=== PATIENT | male | born 1955 | race Caucasian/White ===

== ENCOUNTER → 2017-11-05 | Outpatient (CLI) | payer BC ==
[~2017-11-05] MED LIST: FLOMAX PO; MOBIC15 MG PO; PERCOCET 5-3251 EACH PO; ZOFRAN 4 MG ORAL4 M1 DIS
== END ==
LOC: M.RAD 10:46
DX: M47.892 Other spondylosis, cervical region (principal); M43.12 Spondylolisthesis, cervical region

== ENCOUNTER → 2017-11-26 | Outpatient (CLI) | payer BC ==
--- NOTE | 2017-12-01 07:00 | PAINCON ---
[address] [address] PAIN MANAGEMENT CONSULTATION Name: RUPESH PALMER Room: [facility].#: [id number] Admission: 11/26/17 Attend Phys: Janiya Armenta Discharge: Date of : 53 Report #: [id number] THIS REPORT FOR: //name// CC: Esau Leon HISTORY OF PRESENT ILLNESS: The patient is a 62-year-old gentleman seen in consultation at the request of Dr. Curry for paresthesia, right neck, posterior occiput, ear and shoulder. The patient notes symptoms have been present for 6 weeks without antecedent trauma and overuse, describes periodic symptoms, describes it as numbness and tingling, no subjective pain, but concern for paresthesia on the right side of the neck, had prompted diagnostic study including x-ray of the cervical spine. REVIEW OF SYSTEMS: A complete review of systems was attached to chart and was gone over with the patient. He is , does not smoke or drink alcohol to excess. A 12-point review of systems is fairly unremarkable. 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 He continued to work despite pain. Pain impact score is quite low, averaging 4/70. PHYSICAL EXAMINATION: Reveals a 5 feet 9 inches, 215-pound gentleman, BMI is 32 kg/m2. Blood pressure 132/69, pulse 64, respirations are 16. Cranial nerves 2-12 are grossly intact. Pupils are equal and react to light and accommodation. Extraocular muscles are intact. Cervical range of motion exacerbates some symptoms. Thyroid is modestly enlarged. No carotid bruits are auscultated. Upper extremity strength is generally preserved. He does have some subjective paresthesia, posterior right pinna, posterior occiput, neck and over the cape of the right shoulder. Deltoid strength is symmetric. Biceps and triceps strength is symmetric. Hand grasp is good. Upper extremity reflexes are symmetric. Heart is regular and rhythmical without murmurs. Lungs are clear to auscultation. Abdomen is benign. Gait is tandem. Lower extremity strength is preserved. DIAGNOSTIC STUDIES: Include x-ray of the cervical spine on 11/05/2017, noting cervical spondylosis C3-C4, 4-5, and 5-6, slight retrolisthesis at C3-C4. ASSESSMENT: Symptomatic cervical spondylosis by clinical exam and history, possible component of cervical radiculopathy. RECOMMENDATIONS: We will start the patient on a good nonsteroid anti-inflammatory, Meloxicam 15 mg 1 a day. We will seek authorization for right C2-C3, C3-C4, and C4-C5 cervical facet [place] [address] PAIN MANAGEMENT CONSULTATION Name: RUPESH PALMER Room: [facility]#: [id number] Admission: 11/26/17 Attend Phys: Janiya Armenta Discharge: Date of : 53 Report #: [id number] Thank you for allowing me to participate in the patient's care. I will keep you abreast of his progress. <ELECTRONICALLY SIGNED> By: Esau Leon DO 12/01/17 0700 1352 [id number] Leon DO /nt
== END ==
LOC: M.PC 01:26
DX: M47.892 Other spondylosis, cervical region (principal)

== ENCOUNTER → 2018-01-07 | Outpatient (CLI) | payer BC ==
--- NOTE | 2018-01-12 08:35 | PAINCON ---
[address] [address] PAIN MANAGEMENT CONSULTATION Name: RUPESH PALMER Room: [facility].#: [id number] Admission: 01/07/18 Attend Phys: Janiya Armenta Discharge: Date of : 53 Report #: [id number] THIS REPORT FOR: //name// CC: Esau Leon DATE OF SERVICE: 01/07/2018 The patient is a pleasant 62-year-old gentleman seen in consultation on 11/26/2017, diagnosed with symptomatic cervical spondylosis, cervical radiculopathy and neck pain. Started the patient on meloxicam 15 mg 1 a day, took this for 30 days and really noted no change. He has tenderness in the right neck, but no discrete "pain." He rates his pain as 0 on a VAS. Notes, he feels tightness in the neck with range of motion and this is his primary complaint. PHYSICAL EXAMINATION: Shows 5 feet 9 inches, 218-pound gentleman, BMI is 31.9 kg/m2. Blood pressure 125/70, pulse 62, respirations 18. Cervical range of motion is only nominally limited, little tender over the superior cervical facets on the right side, but no discrete trigger points are noted. Upper extremity strength is preserved. Hand grasp is symmetric. DIAGNOSTIC: We reviewed the MRI from 11/13/2017 noting degenerative changes in the lumbar facets, small focal right disk at C4-C5 with some mass effect on the right C5 nerve root. Multifactorial stenosis, left greater than right at C5-C6 and C3-C4 bilaterally. ASSESSMENT: Symptomatic cervical spondylosis with clinical exam and history, component of cervical radiculopathy, though symptoms are really not terribly impactful at this time. We talked about performing cervical facet joint injections if symptoms became problematic; however, given minimal impact, we have elected to simply continue "watchful waiting." We will be happy to suggest use of [id number]-[id number] NSAID (Aleve b.i.d.) and return to the Pain Clinic if symptoms become problematic. Thank for allowing me to participate in the patient's care. I am happy to report that presently he really does not warrant interventional therapy. <ELECTRONICALLY SIGNED> By: Esau Leon DO 01/12/18 0835 1419 2301Esau Leon DO /nt
== END ==
LOC: M.PC 12-17 08:10
DX: M47.22 Other spondylosis with radiculopathy, cervical region (principal)

== ENCOUNTER → 2019-08-09 | Day surgery (SDC) | payer BC ==
[~2019-08-09] MED LIST changes: +LIPITOR10 MG PO
--- NOTE | ~2019-08-09 | OP ---
[facility] [address] [place] [address] OPERATIVE REPORT Name: RUPESH PALMER Room: [facility].#: [id number] Admission: 08/09/19 Attend Phys: Jose Perez Discharge: Date of : 53 Report #: [id number] THIS REPORT FOR: //name// CC: Jose Curry DATE OF SERVICE: 08/09/2019 PREOPERATIVE DIAGNOSIS: Recurrent right inguinal hernia. POSTOPERATIVE DIAGNOSIS: Recurrent right inguinal hernia. OPERATION: 1. Diagnostic laparoscopy. 2. Repair of right inguinal hernia, recurrent. SURGEON: Jose Perez MD ANESTHESIA: General. ESTIMATED BLOOD LOSS: Minimal. SPECIMEN: Cord lipoma. DESCRIPTION OF PROCEDURE: After informed consent was obtained, the patient was brought to the operating room and placed supine. SCDs were placed and working, preoperative antibiotics were administered, general anesthesia was induced. The abdomen was prepped and draped in the usual sterile fashion. A 10 mm incision was made below the umbilicus. Fascia was incised and the trocar was placed. Pneumoperitoneum was established. I inserted the laparoscope. I examined the right lower quadrant. There were signs that he had a previous laparoscopic right inguinal hernia repair. Therefore, the port was removed and the fascia was closed with a dszceh-zm-ttplc 0 Vicryl. Skin was closed with 4-0 Monocryl. I then made a standard incision 1 cm above the right inguinal ring. Cautery dissection was made down through the subcutaneous tissue. The aponeurosis of the external oblique was incised along the length of its fibers and then a self-retaining Weitlaner retractor was placed. The cord structures were identified and protected with a Cabery drain. The Cabery drain was retracted laterally. He had a recurrent direct hernia. A Prolene mesh was then brought into the field. It was cut to fit the inguinal canal. It was sutured to the pubic tubercle. I then placed interrupted 2-0 Prolene sutures suturing it to the shelving edge of the inguinal ligament and the conjoined area with interrupted 2-0 Prolene sutures. I then wrapped the tails around the cord structures and sutured the Prolene [place] [address] OPERATIVE REPORT Name: RUPESH PALMER Room: [facility].#: [id number] Admission: 08/09/19 Attend Phys: Jose Perez Discharge: Date of : 53 Report #: [id number] The tails were then placed posterior to the external oblique aponeurosis. The aponeurosis was then reapproximated with a running 2-0 Vicryl. Tamar's fascia was reapproximated with 3-0 Vicryl in interrupted fashion and the skin closed with 4-0 Monocryl in running subcuticular fashion. Sterile dressings were applied. COMPLICATIONS: None. DISPOSITION: The patient was taken to recovery in satisfactory condition. By: 2300 [id number] Perez MD /celso
[2019-08-09 09:27] LABS: HEMATOCRIT 47.5 % (42.0-52.0); HEMOGLOBIN 16.5 gm/dL (14.0-18.0); MCH 30.6 pg (26.0-34.0); MCHC 34.7 g/dL (28.0-37.0); MCV 88.1 fL (80.0-100.0); MPV 7.8 fl. (7.2-11.1); RBC 5.4 mil/uL (4.50-6.00); RDW-CV 13.3 % (10.5-14.5); WBC 4.2 thou/uL (4.0-11.0)
[2019-08-09 09:38] LABS: CALCIUM 8.4 mg/dL (8.5-10.1); CREATININE 1.1 mg/dL (0.6-1.3); POTASSIUM 4.3 mmol/L (3.5-5.1)
--- NOTE | 2019-08-10 10:54 | EKG ---
[place] [address] ELECTROCARDIOGRAM REPORT Name: SPENCERRUPESH Emil Room: 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[facility] [employer] : 1955 Requested By: Jose Perez Order Number: [id number] Reading MD: Neo Seals Measurements Intervals [place] Rate: 53 P: 53 ND: 178 QRS: 55 QRSD: 114 T: 42 QT: 446 QTc: 419 Interpretive Statements Sinus rhythm Borderline intraventricular conduction delay No previous ECG available for comparison Electronically Signed On 08-10-2019 10:54:14 INFORMATION SYSTEMS SECURITY DEVELOPER by Neo Seals [email or web address] <ELECTRONICALLY SIGNED> By: Neo Seals MD, [facility] 08/10/19 1054 0915 4 Neo Seals MD, FACC /EPI
--- NOTE | 2019-08-12 11:07 | PATH ---
[facility] [address] [place] [address] PATHOLOGY RPT PROCEDURE Name: RUPESH MUNOZ Room: [facility].#: [id number] Admission: 08/09/19 Date of : 53 Discharge: Report #: [id number] Path Case #: [id number] [facility] Accession Number: [id number] . 01 Material submitted: . hernia - CORD LIPOMA. Modifiers: inguinal . 01 Clinical history: . Right inguinal hernia . 02 Diagnosis: Cord lipoma: - Benign fatty tissue consistent with "cord lipoma". (MARSHA/db; 08/12/2019) LBQ 08/12/2019 0949 Local . 02 Electronically signed: . Aníbal Camargo MD, Pathologist NPI- [id number] . 01 Gross description: . The specimen is received in formalin labeled "Rupesh Munoz cord lipoma". The specimen source is listed on the requisition as "cord lipoma". Received is a segment of yellow-brown, lobulated adipose tissue admixed with scant chris-ray possible fibromembranous tissue. Serial sectioning reveals lobular, pale yellow to slightly hemorrhagic cut surfaces. High Raw Sugar Boiler sections are submitted in cassette A1. (DAC; 08/11/2019) XDC/XDC 08/12/2019 0948 Local . 02 Pathologist provided ICD-10: D17.6 . 02 CPT . 632476 Specimen Comment: A courtesy copy of this report has been sent to [phone] Specimen Comment: [phone] Specimen Comment: Report sent to and Performed at: [address] [facility], [place] [id number] MD Gary Huff MD Phone: [phone] Performed at: [address] [facility] [address] [address], [place], [place] [id number] MD Aníbal Camargo MD Phone: [phone]
== END | disposition home or self-care (01) ==
LOC: M.SUR 07:32
PROVIDERS: Surgery
DX: K40.91 Unilateral inguinal hernia, without obstruction or gangrene, recurrent (principal); Z98.890 Other specified postprocedural states; Z79.899 Other long term (current) drug therapy

== ENCOUNTER → 2020-06-27 | Outpatient (CLI) | payer OTHER | LOC: M.LAB 16:02 | PROVIDERS: ATTEND Podiatrist | DX: Z20.828 Contact with and (suspected) exposure to other viral communicable diseases (principal) ==